=== PATIENT | female | born 1965 | race Caucasian/White ===

== ENCOUNTER 2019-01-18 07:46 | Day surgery (SDC) | payer MEDICARE, OTHER ==
[~2019-01-18] VITALS: Ht 167.6 cm; Wt 65.8 kg
[2019-01-18 08:26] VITALS: BP 100/65
[2019-01-18] MEDS ORDERED: LACTATED RINGERS 1,000 ML IV SCH (08:31)
[2019-01-18] MEDS ORDERED: [UNRECOGNIZED DRUG - REMARK] PO (08:36)
[2019-01-18] MEDS ORDERED: ZOFRAN PO (08:36)
[2019-01-18] MEDS ORDERED: SERT100T32 PO (08:36)
[2019-01-18] MEDS ORDERED: PANT40TA5 PO (08:36)
[2019-01-18] MEDS ORDERED: LEVO112T4 PO (08:36)
[2019-01-18] MEDS ORDERED: XERALTO PO (08:36)
[2019-01-18] MEDS ORDERED: METOPROLOL 1 MG/ML, 5ML IV PRN (09:00)
[2019-01-18] MEDS ORDERED: HALOPERIDOL 5 MG/ML IV PRN (09:00)
[2019-01-18] MEDS ORDERED: FENTANYL PF 100 MCG/2ML IV PRN (09:00)
[2019-01-18] MEDS ORDERED: DIPHENHYDRAMINE 50 MG/ML, 1ML IVPush PRN (09:00)
[2019-01-18] MEDS ORDERED: PROCHLORPERAZINE 5 MG/ML, 2ML IV PRN (09:00)
[2019-01-18] MEDS ORDERED: PROMETHAZINE 25 MG/ML, 1ML IV PRN (09:00)
[2019-01-18] MEDS ORDERED: OXYcodone 5 MG/5 ML ORAL.SOL UDC PO PRN (09:00)
[2019-01-18] MEDS ORDERED: hydrALAzine 20 MG/ML, 1ML IV PRN (09:00)
[2019-01-18] MEDS ORDERED: HYDROmorphone 2 MG/ML, 1ML IVPush PRN (09:00)
[2019-01-18] MEDS ORDERED: MEPERIDINE/PF 25MG/0.5ML IVPush PRN (09:00)
[2019-01-18] MEDS ORDERED: LABETALOL 5MG/ML, 20ML IV PRN (09:00)
[2019-01-18 09:19] LABS: BASOPHILS # (AUTO) 0.03 x10^3/uL (0-0.1); BASOPHILS % (AUTO) 0 % (0-1); EOSINOPHILS # (AUTO) 0.01 x10^3/uL (0-0.4); EOSINOPHILS % (AUTO) 0 % (1-7); LYMPHOCYTES # (AUTO) 1.58 x10^3/uL (1-3.4); LYMPHOCYTES % (AUTO) 22 % (22-44); MD NO; MEAN CORPUSCULAR HEMOGLOBIN 35.3 pg (27.0-34.8); MEAN CORPUSCULAR HGB CONC 32.4 g/dL (32.4-35.8); MEAN CORPUSCULAR VOLUME 109.1 fL (80-100); MEAN PLATELET VOLUME 8.3 fL (7.4-10.4); MONOCYTES # (AUTO) 0.52 x10^3/uL (0.2-0.8); MONOCYTES % (AUTO) 7 % (2-9); NEUTROPHILS # (AUTO) 4.94 x10^3/uL (1.8-6.8); NEUTROPHILS % (AUTO) 70 % (42-75); PLATELET COUNT 289 x10^3/uL (130-400); RED BLOOD COUNT 3.41 x10^6/uL (3.82-5.3)
[2019-01-18] MEDS ORDERED: LIDOCAINE JELLY 2%, 30GM ONE (09:42)
[2019-01-18] MEDS ORDERED: SILVER SULF. CRM 1% , 25GM ONE (09:42)
[2019-01-18] MEDS ORDERED: BUPIVACAINE/PF-EPI 0.5% 1:200K ONE (09:42)
[2019-01-18] MEDS ORDERED: MIDAZOLAM 1 MG/ML, 2ML ONE (10:24)
[2019-01-18] MEDS ORDERED: FENTANYL PF 100 MCG/2ML ONE ×2 (10:25→10:47)
[2019-01-18] MEDS ORDERED: OXYcodone 5 MG/5 ML ORAL.SOL UDC ONE (11:29)
[2019-01-18] MEDS ORDERED: SUCCINYLCHOLINE 20 MG/ML, 10ML ONE (15:03)
[2019-01-18] MEDS ORDERED: ROCURONIUM 10MG/ML,5ML ONE (15:03)
[2019-01-18] MEDS ORDERED: DEXAMETHASONE 4 MG/ML, 1ML ONE (15:03)
[2019-01-18] MEDS ORDERED: PROPOFOL 10 MG/ML, 20ML ONE (15:03)
[2019-01-18] MEDS ORDERED: CEFAZOLIN 1,000 MG ONE (15:03)
[2019-01-18] MEDS ORDERED: ONDANSETRON 2MG/ML, 2ML ONE (15:03)
== END 2019-01-18 13:15 | disposition home or self-care (01) ==
LOC: OUT 07:46
PROVIDERS: ATTEND Surgery
DX: K64.8 Other hemorrhoids (principal); K64.4 Residual hemorrhoidal skin tags; J44.9 Chronic obstructive pulmonary disease, unspecified; E03.9 Hypothyroidism, unspecified; K21.9 Gastro-esophageal reflux disease without esophagitis; F32.9 Major depressive disorder, single episode, unspecified; F17.210 Nicotine dependence, cigarettes, uncomplicated; Z86.711 Personal history of pulmonary embolism; Z86.718 Personal history of other venous thrombosis and embolism; Z98.890 Other specified postprocedural states
CPT/HCPCS: 36415; 46255; 85025; 88304; J0330; J0690; J1100; J2250; J2405; J2704; J3010; J7120

== ENCOUNTER → 2019-03-22 | Outpatient (CLI) | payer MEDICARE ==
[~2019-03-22] MED LIST: ACID1TAB7 PO; HYDR25TA6 PO; LEVO112T4 PO; PANT40TA5 PO; SERT100T32 PO; XERALTO PO; ZOFRAN PO; [UNRECOGNIZED DRUG - REMARK] PO
== END | disposition home or self-care (01) ==
LOC: CARD 15:16
PROVIDERS: ATTEND Registered Nurse
DX: J44.9 Chronic obstructive pulmonary disease, unspecified (principal)
CPT/HCPCS: 94060; 94726; 94729

== ENCOUNTER 2019-08-16 13:51 | Inpatient (IN) | payer MEDICARE ==
[~2019-08-16] VITALS: Ht 167.6 cm; Wt 69.4 kg
[2019-08-16] MEDS ORDERED: ASPIRIN 81 MG TABLET CHEW ONE (14:23)
[2019-08-16] MEDS ORDERED: ASPIRIN 81 MG TABLET CHEW PO ONE (14:30)
[2019-08-16] MEDS ORDERED: VENL37.52 PO (14:35)
[2019-08-16 14:38] LABS: MEAN CORPUSCULAR HEMOGLOBIN 39.9 pg (27.0-34.8); MEAN CORPUSCULAR HGB CONC 32.5 g/dL (32.4-35.8); MEAN CORPUSCULAR VOLUME 122.6 fL (80-100); MEAN PLATELET VOLUME 7.5 fL (7.4-10.4); PLATELET COUNT 396 x10^3/uL (130-400); RED BLOOD COUNT 2.77 x10^6/uL (3.82-5.3); RED CELL DISTRIBUTION WIDTH 20.3 % (9.6-15.2)
[2019-08-16] MEDS ORDERED: DILTIAZEM 5 MG/ML, 5ML IVPush ONE (15:00)
[2019-08-16] MEDS ORDERED: DILTIAZEM 5 MG/ML, 5ML ONE (15:02)
[2019-08-16 15:07] LABS: MD YES
[2019-08-16 15:15] LABS: BAND#(MANUAL) 0.08 x10^3/uL; BANDS%(MANUAL) 1 % (0-7); LYMPH#(MANUAL) 1.58 x10^3/uL (1-3.4); LYMPHS% (MANUAL) 20 % (22-44); MONOS#(MANUAL) 0.32 x10^3/uL (0.3-2.7); MONOS% (MANUAL) 4 % (2-9); SEG#(MANUAL) 5.93 x10^3/uL (1.8-6.8); SEGS% (MANUAL) 75 % (42-75)
[2019-08-16 15:16] LABS: <PLATELET ESTIMATE> ADEQUATE; <PLT MORPHOLOGY> NORMAL PLT MORPH; OVALOCYTES 1+; POLYCHROMASIA 1+; TARGET CELLS 1+
[2019-08-16 15:22] LABS: ALANINE AMINOTRANSFERASE 19 U/L (12-78); ALBUMIN 2.6 g/dL (3.4-5.0); ANION GAP 9 mmol/L (5-15); CALCIUM 7.8 mg/dL (8.5-10.1); CHLORIDE 105 mmol/L (98-107); CREATININE 1.07 mg/dL (0.55-1.02)
[2019-08-16 15:27] LABS: ALKALINE PHOSPHATASE 143 U/L (45-117); BILIRUBIN,TOTAL 0.5 mg/dL (0.2-1.0); TOTAL PROTEIN 6.2 g/dL (6.4-8.2); TROPONIN I < 0.015 ng/mL (0.000-0.045)
[2019-08-16] MEDS ORDERED: BISACODYL 10 MG SUPP PR PRN (18:30)
[2019-08-16] MEDS ORDERED: ENOXAPARIN 60 MG/0.6 ML SQ SCH (18:30)
[2019-08-16] MEDS ORDERED: POLYETHYLENE GLYCOL 17 GM PACKET PO PRN (18:30)
[2019-08-16] MEDS ORDERED: ACETAMINOPHEN 325 MG TABLET PO PRN (18:30)
[2019-08-16 18:48] VITALS: BP 115/76
[2019-08-16] MEDS ORDERED: DILTIAZEM 125 MG in SODIUM CHLORIDE 0.9% 100 ML IV SCH (19:00)
[2019-08-16 19:32] LABS: TROPONIN I < 0.015 ng/mL (0.000-0.045)
[2019-08-16] MEDS: SODIUM CHLORIDE 0.9% 1,000 ML IV SCH (19:49)
[2019-08-16 19:50] VITALS: BP 114/88
[2019-08-16] MEDS: ONDANSETRON 2MG/ML, 2ML IVPush PRN ×2 (21:11→21:13)
[2019-08-16] MEDS: RIVAROXABAN 20 MG TABLET PO SCH (21:11)
[2019-08-16 21:21] VITALS: BP 106/77
[2019-08-17] VITALS (7 sets, daily range): BP systolic 97–117; BP diastolic 60–85
[2019-08-17] MEDS: hydrOXyzine 10MG TABLET PO PRN ×2 (00:11→20:27)
[2019-08-17 00:45] LABS: TROPONIN I < 0.015 ng/mL (0.000-0.045)
[2019-08-17 05:09] LABS: MEAN CORPUSCULAR HEMOGLOBIN 40.2 pg (27.0-34.8); MEAN CORPUSCULAR HGB CONC 32.7 g/dL (32.4-35.8); MEAN CORPUSCULAR VOLUME 122.9 fL (80-100); MEAN PLATELET VOLUME 7.7 fL (7.4-10.4); PLATELET COUNT 353 x10^3/uL (130-400); RED BLOOD COUNT 2.23 x10^6/uL (3.82-5.3); RED CELL DISTRIBUTION WIDTH 20.3 % (9.6-15.2)
[2019-08-17 05:18] LABS: CHLORIDE 109 mmol/L (98-107)
[2019-08-17 05:25] LABS: ALANINE AMINOTRANSFERASE 13 U/L (12-78); ALBUMIN 1.9 g/dL (3.4-5.0); ALKALINE PHOSPHATASE 106 U/L (45-117); ANION GAP 4 mmol/L (5-15); BILIRUBIN,TOTAL 0.6 mg/dL (0.2-1.0); CALCIUM 7.2 mg/dL (8.5-10.1); CHOL/HDL RATIO 1.4; CHOLESTEROL, TOTAL 92 mg/dL (140-239); CREATININE 0.96 mg/dL (0.55-1.02); HDL CHOL % 70 % (28-40); HDL CHOLESTEROL (DIRECT) 64 mg/dL (40-60); LDL CHOLESTEROL,CALCULATED 17 mg/dL (54-169); LDL/HDL RATIO 0.3 (0.5-3.0); TOTAL PROTEIN 4.7 g/dL (6.4-8.2); TRIGLYCERIDES 53 mg/dL (50-200); TROPONIN I < 0.015 ng/mL (0.000-0.045); VLDL CHOLESTEROL 11 mg/dL (0-25)
[2019-08-17 05:43] LABS: BASOPHILS % (AUTO) 1 % (0-1); EOSINOPHILS # (AUTO) 0.09 x10^3/uL (0-0.4); EOSINOPHILS % (AUTO) 1 % (1-7); LYMPHOCYTES # (AUTO) 3.34 x10^3/uL (1-3.4); LYMPHOCYTES % (AUTO) 40 % (22-44); MD SCAN; MONOCYTES # (AUTO) 0.63 x10^3/uL (0.2-0.8); MONOCYTES % (AUTO) 8 % (2-9); NEUTROPHILS # (AUTO) 4.26 x10^3/uL (1.8-6.8); NEUTROPHILS % (AUTO) 51 % (42-75)
[2019-08-17] MEDS ORDERED: MAGNESIUM SULFATE PMX 2GM/50ML 50 ML IV ONE (06:30)
[2019-08-17] MEDS ORDERED: VENLAFAXINE XR 37.5MG CAP.ER.24H PO PRN (06:30)
[2019-08-17] MEDS: SODIUM CHLORIDE 0.9% 1,000 ML IV SCH ×2 (08:00→22:00)
[2019-08-17] MEDS: SENNA/DOCUSATE TABLET PO SCH (08:00)
[2019-08-17] MEDS ORDERED: LEVOTHYROXINE 112 MCG TABLET PO SCH (09:00)
[2019-08-17] MEDS ORDERED: RIVAROXABAN 20 MG TABLET PO SCH (09:00)
[2019-08-17] MEDS: ONDANSETRON 2MG/ML, 2ML IVPush PRN ×2 (14:02→20:27)
[2019-08-17] MEDS: DILTIAZEM 30 MG TABLET PO SCH ×3 (14:08→20:27)
[2019-08-17] MEDS: RIVAROXABAN 20 MG TABLET PO SCH (18:06)
[2019-08-17] MEDS ORDERED: OLODATEROL INH SCH (22:00)
[2019-08-17] MEDS ORDERED: TIOTROPIUM BROMIDE INH SCH (22:00)
[2019-08-18] MEDS: hydrOXyzine 10MG TABLET PO PRN ×3 (01:21→21:37)
[2019-08-18 01:54] VITALS: BP 105/73
[2019-08-18] MEDS: DILTIAZEM 30 MG TABLET PO SCH ×3 (02:00→11:53)
[2019-08-18 05:17] LABS: ALBUMIN 1.9 g/dL (3.4-5.0); CALCIUM 7.4 mg/dL (8.5-10.1); CHLORIDE 112 mmol/L (98-107)
[2019-08-18 05:46] LABS: ALANINE AMINOTRANSFERASE 13 U/L (12-78); ALKALINE PHOSPHATASE 110 U/L (45-117); ANION GAP 4 mmol/L (5-15); BILIRUBIN,TOTAL 0.7 mg/dL (0.2-1.0); CREATININE 0.92 mg/dL (0.55-1.02); TOTAL PROTEIN 4.8 g/dL (6.4-8.2)
[2019-08-18 05:51] LABS: MEAN CORPUSCULAR HEMOGLOBIN 40.4 pg (27.0-34.8); MEAN CORPUSCULAR HGB CONC 32.6 g/dL (32.4-35.8); MEAN CORPUSCULAR VOLUME 123.9 fL (80-100); MEAN PLATELET VOLUME 7.8 fL (7.4-10.4); PLATELET COUNT 375 x10^3/uL (130-400); RED BLOOD COUNT 2.31 x10^6/uL (3.82-5.3); RED CELL DISTRIBUTION WIDTH 20.4 % (9.6-15.2)
[2019-08-18 06:10] LABS: BASOPHILS # (AUTO) 0.03 x10^3/uL (0-0.1); BASOPHILS % (AUTO) 0 % (0-1); EOSINOPHILS # (AUTO) 0.08 x10^3/uL (0-0.4); EOSINOPHILS % (AUTO) 1 % (1-7); LYMPHOCYTES # (AUTO) 2.13 x10^3/uL (1-3.4); LYMPHOCYTES % (AUTO) 31 % (22-44); MD SCAN; MONOCYTES # (AUTO) 0.49 x10^3/uL (0.2-0.8); MONOCYTES % (AUTO) 7 % (2-9); NEUTROPHILS # (AUTO) 4.09 x10^3/uL (1.8-6.8); NEUTROPHILS % (AUTO) 60 % (42-75)
[2019-08-18] MEDS: LEVOTHYROXINE 112 MCG TABLET PO SCH (06:16)
[2019-08-18 08:31] VITALS: BP 101/74
[2019-08-18] MEDS: [UNRECOGNIZED DRUG - OTHER] INH SCH (09:00)
[2019-08-18] MEDS: SENNA/DOCUSATE TABLET PO SCH (09:14)
[2019-08-18] MEDS: MAGNESIUM OXIDE 400 MG TABLET PO SCH (09:14)
[2019-08-18 11:43] VITALS: BP 116/83
[2019-08-18 13:20] VITALS: BP 103/81
[2019-08-18] MEDS: SODIUM CHLORIDE 0.9% 1,000 ML IV SCH (15:32)
[2019-08-18] MEDS: ONDANSETRON 2MG/ML, 2ML IVPush PRN (16:20)
[2019-08-18] MEDS: RIVAROXABAN 20 MG TABLET PO SCH (17:56)
[2019-08-18] MEDS ORDERED: OMNIPAQUE 350 MG/ML, 100ML BOTTLE ONE (18:01)
[2019-08-18] MEDS ORDERED: DILTIAZEM 90 MG CAP.ER.12H PO SCH (21:00)
[2019-08-18 21:31] VITALS: BP 127/84
[2019-08-19 02:49] VITALS: BP 102/62
[2019-08-19 05:56] LABS: MEAN CORPUSCULAR HEMOGLOBIN 41.2 pg (27.0-34.8); MEAN CORPUSCULAR VOLUME 124.6 fL (80-100); MEAN PLATELET VOLUME 7.8 fL (7.4-10.4); PLATELET COUNT 398 x10^3/uL (130-400); RED BLOOD COUNT 2.38 x10^6/uL (3.82-5.3); RED CELL DISTRIBUTION WIDTH 20.4 % (9.6-15.2)
[2019-08-19 06:03] LABS: ALANINE AMINOTRANSFERASE 14 U/L (12-78); ALBUMIN 1.9 g/dL (3.4-5.0); ANION GAP 6 mmol/L (5-15); CALCIUM 7.4 mg/dL (8.5-10.1); CHLORIDE 114 mmol/L (98-107); CREATININE 0.95 mg/dL (0.55-1.02)
[2019-08-19 06:05] LABS: ALKALINE PHOSPHATASE 112 U/L (45-117); BILIRUBIN,TOTAL 0.6 mg/dL (0.2-1.0); TOTAL PROTEIN 4.8 g/dL (6.4-8.2)
[2019-08-19] MEDS: LEVOTHYROXINE 112 MCG TABLET PO SCH (06:10)
[2019-08-19 07:15] LABS: BASOPHILS # (AUTO) 0.11 x10^3/uL (0-0.1); BASOPHILS % (AUTO) 2 % (0-1); EOSINOPHILS # (AUTO) 0.06 x10^3/uL (0-0.4); EOSINOPHILS % (AUTO) 1 % (1-7); LYMPHOCYTES # (AUTO) 2.01 x10^3/uL (1-3.4); LYMPHOCYTES % (AUTO) 31 % (22-44); MD SCAN; MONOCYTES # (AUTO) 0.58 x10^3/uL (0.2-0.8); MONOCYTES % (AUTO) 9 % (2-9); NEUTROPHILS # (AUTO) 3.73 x10^3/uL (1.8-6.8); NEUTROPHILS % (AUTO) 58 % (42-75)
[2019-08-19 08:26] VITALS: BP 118/78
[2019-08-19] MEDS: [UNRECOGNIZED DRUG - OTHER] INH SCH (08:57)
[2019-08-19] MEDS: MAGNESIUM OXIDE 400 MG TABLET PO SCH (08:58)
[2019-08-19] MEDS: DILTIAZEM 120 MG CAP.ER.12H PO SCH ×2 (08:58→20:49)
[2019-08-19] MEDS: SENNA/DOCUSATE TABLET PO SCH (08:58)
[2019-08-19] MEDS ORDERED: FUROSEMIDE 20 MG/2 ML IV ONE (09:00)
[2019-08-19 12:55] VITALS: BP 109/59
[2019-08-19] MEDS: RIVAROXABAN 20 MG TABLET PO SCH (16:29)
[2019-08-19] MEDS: hydrOXyzine 10MG TABLET PO PRN (18:14)
[2019-08-19 19:50] VITALS: BP 101/75
[2019-08-20] MEDS: hydrOXyzine 10MG TABLET PO PRN (00:13)
[2019-08-20 01:36] VITALS: BP 101/77
[2019-08-20 05:14] LABS: MEAN CORPUSCULAR HEMOGLOBIN 39.9 pg (27.0-34.8); MEAN CORPUSCULAR HGB CONC 32.2 g/dL (32.4-35.8); MEAN CORPUSCULAR VOLUME 123.7 fL (80-100); MEAN PLATELET VOLUME 7.6 fL (7.4-10.4); PLATELET COUNT 383 x10^3/uL (130-400); RED BLOOD COUNT 2.36 x10^6/uL (3.82-5.3); RED CELL DISTRIBUTION WIDTH 20.2 % (9.6-15.2)
[2019-08-20 05:25] LABS: ANION GAP 4 mmol/L (5-15); CALCIUM 7.4 mg/dL (8.5-10.1); CHLORIDE 112 mmol/L (98-107); CREATININE 0.95 mg/dL (0.55-1.02)
[2019-08-20 06:08] LABS: BASOPHILS % (AUTO) 1 % (0-1); EOSINOPHILS # (AUTO) 0.09 x10^3/uL (0-0.4); EOSINOPHILS % (AUTO) 1 % (1-7); LYMPHOCYTES # (AUTO) 2.55 x10^3/uL (1-3.4); LYMPHOCYTES % (AUTO) 36 % (22-44); MD SCAN; MONOCYTES # (AUTO) 0.69 x10^3/uL (0.2-0.8); MONOCYTES % (AUTO) 10 % (2-9); NEUTROPHILS # (AUTO) 3.62 x10^3/uL (1.8-6.8); NEUTROPHILS % (AUTO) 51 % (42-75)
[2019-08-20] MEDS: LEVOTHYROXINE 112 MCG TABLET PO SCH (06:33)
[2019-08-20 07:56] VITALS: BP 103/72
[2019-08-20] MEDS: SENNA/DOCUSATE TABLET PO SCH ×2 (08:19→12:41)
[2019-08-20] MEDS: DILTIAZEM 120 MG CAP.ER.12H PO SCH (08:19)
[2019-08-20] MEDS: [UNRECOGNIZED DRUG - OTHER] INH SCH (08:19)
[2019-08-20] MEDS: MAGNESIUM OXIDE 400 MG TABLET PO SCH (08:21)
[2019-08-20] MEDS: ONDANSETRON 2MG/ML, 2ML IVPush PRN (12:40)
[2019-08-20 13:52] VITALS: BP 106/74
[2019-08-20] MEDS ORDERED: DILT120C11 PO (16:49)
[2019-08-20] MEDS ORDERED: MAGN400T50 PO (16:49)
[2019-08-20] MEDS: RIVAROXABAN 20 MG TABLET PO SCH (17:47)
== END 2019-08-20 18:04 | disposition home health service (06) | DRG 308 ==
LOC: ED 14:49 → EDIP 16:41 → 5SO 18:38
PROVIDERS: ADMIT Internal Medicine; ATTEND Internal Medicine
DX: I48.91 Unspecified atrial fibrillation (principal); I50.33 Acute on chronic diastolic (congestive) heart failure; E46 Unspecified protein-calorie malnutrition; J96.10 Chronic respiratory failure, unspecified whether with hypoxia or hypercapnia; D68.69 Other thrombophilia; I11.0 Hypertensive heart disease with heart failure; D53.9 Nutritional anemia, unspecified; E86.0 Dehydration; G47.30 Sleep apnea, unspecified; I45.10 Unspecified right bundle-branch block; J44.9 Chronic obstructive pulmonary disease, unspecified; E03.9 Hypothyroidism, unspecified; Z79.01 Long term (current) use of anticoagulants; Z79.899 Other long term (current) drug therapy; Z87.891 Personal history of nicotine dependence; Z98.84 Bariatric surgery status; Z99.81 Dependence on supplemental oxygen; Z68.24 Body mass index [BMI] 24.0-24.9, adult; Z83.79 Family history of other diseases of the digestive system
CPT/HCPCS: 36415; 71045; 71260; 74177; 80048; 80053; 80061; 82607; 83735; 83880; 84100; 84443; 84484; 85025; 93005; 93970; G0378; J2405; Q9967; J1940; J3475; J7030

== ENCOUNTER 2019-08-28 07:59 | Day surgery (SDC) | payer MEDICARE ==
[~2019-08-28] VITALS: Ht 168.9 cm; Wt 99.1 kg
[~2019-08-28 07:59] MED LIST changes: +DILT120C11 PO; +MAGN400T50 PO; +VENL37.52 PO
[2019-08-28] MEDS ORDERED: VENL37.52 PO (08:36)
[2019-08-28] MEDS ORDERED: LEVO112T4 PO (08:36)
[2019-08-28] MEDS ORDERED: HYDR-3237 PO (08:36)
[2019-08-28] MEDS ORDERED: RIVA20TA PO (08:36)
[2019-08-28] MEDS ORDERED: PANT40TA5 PO (08:36)
[2019-08-28] MEDS ORDERED: VERA120T8 PO (08:36)
[2019-08-28] MEDS ORDERED: HYDR10TA4 PO (08:36)
[2019-08-28] MEDS ORDERED: ONDA4TAB7 PO (08:36)
[2019-08-28 08:41] VITALS: BP 102/78
[2019-08-28 09:02] LABS: ANION GAP 6 mmol/L (5-15); CALCIUM 7.7 mg/dL (8.5-10.1); CHLORIDE 111 mmol/L (98-107); CREATININE 1.17 mg/dL (0.55-1.02)
[2019-08-28] MEDS ORDERED: PROPOFOL 10 MG/ML, 20ML ONE (10:18)
== END 2019-08-28 12:11 | disposition home or self-care (01) ==
LOC: CACL 07:59
PROVIDERS: ATTEND Internal Medicine Cardiovascular Disease
DX: I48.91 Unspecified atrial fibrillation (principal); I11.0 Hypertensive heart disease with heart failure; I50.30 Unspecified diastolic (congestive) heart failure; F41.9 Anxiety disorder, unspecified; J44.9 Chronic obstructive pulmonary disease, unspecified; E66.9 Obesity, unspecified; Z68.25 Body mass index [BMI] 25.0-25.9, adult; Z79.01 Long term (current) use of anticoagulants; Z79.890 Hormone replacement therapy; Z79.899 Other long term (current) drug therapy; Z87.891 Personal history of nicotine dependence; Z86.718 Personal history of other venous thrombosis and embolism; Z86.711 Personal history of pulmonary embolism
CPT/HCPCS: 36415; 80048; 92960; J2704

== ENCOUNTER 2019-09-02 10:49 | Emergency (ER) | payer MEDICARE ==
[~2019-09-02] VITALS: Ht 167.6 cm; Wt 63.6 kg
[~2019-09-02 10:49] MED LIST changes: +HYDR-3237 PO; +HYDR10TA4 PO; +ONDA4TAB7 PO; +RIVA20TA PO; +VERA120T8 PO
--- NOTE | 2019-09-02 11:27 | NUR ---
PT BIB [facility] S/P FEELING DIZZY AND SYNCOPAL X "SECONDS" FELL BACK AND HIT HEAD, WITNESSED BY . PT DENIES HEAD AND NECK PAIN. A&O X4, GCS 15, LUNGS CLEAR BILAT. HR 60S, RBBB NOTED BY EMS. HX AFIB, WAS CARDIOVERTED AT [facility] 2 WEEKS AGO. PER EMS PT SELF CONVERTED TO SR WITH RBBB EN ROUTE. ABD SNT, C/O CONSTIPATION X2 DAYS. ZOFRAN PER EMS. VSS. AT BEDSIDE. EKG COMPLETE. AWAITING MD ALATORRE. CALL LIGHT W/IN REACH FALL PRECS IN PLACE.
--- NOTE | 2019-09-02 11:41 | NUR ---
MD AT BEDSIDE. PT STS SHE DID NOT EAT BREAKFAST TODAY AND FELT LIKE SHE WAS GOING TO PASS OUT FROM THAT.
--- NOTE | 2019-09-02 12:21 | NUR ---
PT RESTING COMFORTABLY AWAITING LAB AND CXR RESULT AT BEDSIDE CALL SEWELL IN REACH.
[2019-09-02 12:35] LABS: MEAN CORPUSCULAR HEMOGLOBIN 37.3 pg (27.0-34.8); MEAN CORPUSCULAR HGB CONC 31.9 g/dL (32.4-35.8); MEAN CORPUSCULAR VOLUME 116.9 fL (80-100); MEAN PLATELET VOLUME 7.1 fL (7.4-10.4); PLATELET COUNT 545 x10^3/uL (130-400); RED BLOOD COUNT 3.05 x10^6/uL (3.82-5.3); RED CELL DISTRIBUTION WIDTH 21.8 % (9.6-15.2)
[2019-09-02 12:48] LABS: ALANINE AMINOTRANSFERASE 14 U/L (12-78); ALBUMIN 2.1 g/dL (3.4-5.0); ANION GAP 6 mmol/L (5-15); CALCIUM 7.6 mg/dL (8.5-10.1); CHLORIDE 111 mmol/L (98-107); CREATININE 0.96 mg/dL (0.55-1.02)
[2019-09-02 12:50] LABS: ALKALINE PHOSPHATASE 127 U/L (45-117); BILIRUBIN,TOTAL 0.6 mg/dL (0.2-1.0); TOTAL PROTEIN 5.9 g/dL (6.4-8.2)
[2019-09-02 13:03] LABS: BASOPHILS # (AUTO) 0.01 x10^3/uL (0-0.1); BASOPHILS % (AUTO) 0 % (0-1); EOSINOPHILS # (AUTO) 0.08 x10^3/uL (0-0.4); EOSINOPHILS % (AUTO) 1 % (1-7); LYMPHOCYTES # (AUTO) 1.99 x10^3/uL (1-3.4); LYMPHOCYTES % (AUTO) 17 % (22-44); MD MORPH REVIEW ONLY; MONOCYTES # (AUTO) 0.49 x10^3/uL (0.2-0.8); MONOCYTES % (AUTO) 4 % (2-9); NEUTROPHILS # (AUTO) 9.52 x10^3/uL (1.8-6.8); NEUTROPHILS % (AUTO) 79 % (42-75)
[2019-09-02 13:05] LABS: TARGET CELLS 1+
[2019-09-02 13:07] LABS: <PLATELET ESTIMATE> INCREASED; <PLT MORPHOLOGY> NORMAL PLT MORPH; HYPOCHROMIA 1+
[2019-09-02 13:09] LABS: ANISOCYTOSIS 2+
--- NOTE | 2019-09-02 13:09 | NUR ---
BECKI QUINN AT BEDSIDE FOR RECHECK/EXPLANATION OF RESULTS. PT AND VERBALIZE UNDERSTANDING. PT NSR WITH RBBB 60'S ON RN INTERNSHIP. SKIN SLIGHTLY PALE, WARM AND DRY. RESP EVEN AND UNLABORED. CALL LIGHT WITHIN REACH.
[2019-09-02 13:43] VITALS: BP 127/88
== END 2019-09-02 13:53 | disposition home or self-care (01) ==
LOC: ED 12:01
DX: R55 Syncope and collapse (principal); J44.9 Chronic obstructive pulmonary disease, unspecified; I48.91 Unspecified atrial fibrillation; I50.20 Unspecified systolic (congestive) heart failure; Z98.84 Bariatric surgery status; Z86.711 Personal history of pulmonary embolism; Z86.718 Personal history of other venous thrombosis and embolism
CPT/HCPCS: 36415; 71045; 80053; 85025; 93005; 99284

== ENCOUNTER 2019-09-11 08:58 | Inpatient (IN) | payer MEDICARE ==
[~2019-09-11] VITALS: Ht 167.6 cm; Wt 76.7 kg
[2019-09-11] MEDS ORDERED: PLEASE ENTER HEIGHT AND WEIGHT MC SCH (09:30)
[2019-09-11 09:33] VITALS: BP 92/60
[2019-09-11 10:22] LABS: ANION GAP 5 mmol/L (5-15); CALCIUM 7.5 mg/dL (8.5-10.1); CHLORIDE 115 mmol/L (98-107); CHOLESTEROL, TOTAL 83 mg/dL (140-239)
[2019-09-11 10:26] LABS: CHOL/HDL RATIO 2.1; FREE T4 (FREE THYROXINE) 0.85 ng/dL (0.76-1.46); HDL CHOL % 47 % (28-40); HDL CHOLESTEROL (DIRECT) 39 mg/dL (40-60); LDL CHOLESTEROL,CALCULATED 28 mg/dL (54-169); LDL/HDL RATIO 0.7 (0.5-3.0); TRIGLYCERIDES 78 mg/dL (50-200); TROPONIN I < 0.015 ng/mL (0.000-0.045); VLDL CHOLESTEROL 16 mg/dL (0-25)
[2019-09-11] MEDS: SOTALOL 120MG TABLET PO SCH ×2 (10:58→23:11)
[2019-09-11] MEDS ORDERED: hydrOXyzine 10MG TABLET ONE (11:04)
[2019-09-11] MEDS ORDERED: HYDR-826 PO (11:23)
[2019-09-11 13:40] VITALS: BP 92/63
[2019-09-11] MEDS: HYDROcodone/APAP 5/325 TABLET PO PRN (17:13)
[2019-09-11 20:00] VITALS: BP 92/65
[2019-09-11] MEDS ORDERED: RIVAROXABAN 20 MG TABLET PO ONE (21:00)
[2019-09-11] MEDS: ONDANSETRON 4 MG TABLET PO PRN (23:45)
[2019-09-12] VITALS (8 sets, daily range): BP systolic 72–106; BP diastolic 38–70
[2019-09-12] MEDS: PANTOPROZOLE 40MG TABLET PO SCH (06:22)
[2019-09-12] MEDS: LEVOTHYROXINE 112 MCG TABLET PO SCH (06:22)
[2019-09-12] MEDS: HYDROcodone/APAP 5/325 TABLET PO PRN (08:11)
[2019-09-12] MEDS: LACTOBACILLUS CHEW TABLET PO SCH (08:11)
[2019-09-12] MEDS: VENLAFAXINE XR 37.5MG CAP.ER.24H PO SCH (08:11)
[2019-09-12] MEDS ORDERED: RIVAROXABAN 20 MG TABLET PO SCH (09:00)
[2019-09-12] MEDS: SOTALOL 120MG TABLET PO SCH ×2 (10:06→22:27)
[2019-09-12] MEDS: FUROSEMIDE 20 MG TABLET PO SCH (13:00)
[2019-09-12 14:16] LABS: MEAN CORPUSCULAR HEMOGLOBIN 35.3 pg (27.0-34.8); MEAN CORPUSCULAR VOLUME 110.4 fL (80-100); MEAN PLATELET VOLUME 7.5 fL (7.4-10.4); PLATELET COUNT 426 x10^3/uL (130-400); RED BLOOD COUNT 3.05 x10^6/uL (3.82-5.3)
[2019-09-12] MEDS: ONDANSETRON 4 MG TABLET PO PRN (14:22)
[2019-09-12] MEDS: ACETAMINOPHEN 325 MG TABLET PO PRN (14:22)
[2019-09-12 14:56] LABS: ALBUMIN 1.7 g/dL (3.4-5.0); ANION GAP 5 mmol/L (5-15); CALCIUM 7.7 mg/dL (8.5-10.1); CHLORIDE 115 mmol/L (98-107)
[2019-09-12 15:01] LABS: ALANINE AMINOTRANSFERASE 17 U/L (12-78); ALKALINE PHOSPHATASE 127 U/L (45-117); BILIRUBIN,TOTAL 0.5 mg/dL (0.2-1.0); CREATININE 0.99 mg/dL (0.55-1.02); TOTAL PROTEIN 5.5 g/dL (6.4-8.2)
[2019-09-12 15:15] LABS: BASOPHILS # (AUTO) 0.04 x10^3/uL (0-0.1); BASOPHILS % (AUTO) 1 % (0-1); EOSINOPHILS # (AUTO) 0.07 x10^3/uL (0-0.4); EOSINOPHILS % (AUTO) 1 % (1-7); LYMPHOCYTES # (AUTO) 2.55 x10^3/uL (1-3.4); LYMPHOCYTES % (AUTO) 33 % (22-44); MD MORPH REVIEW ONLY; MONOCYTES # (AUTO) 0.64 x10^3/uL (0.2-0.8); MONOCYTES % (AUTO) 8 % (2-9); NEUTROPHILS # (AUTO) 4.36 x10^3/uL (1.8-6.8); NEUTROPHILS % (AUTO) 57 % (42-75)
[2019-09-12 15:17] LABS: ANISOCYTOSIS 2+
[2019-09-12 15:23] LABS: <PLATELET ESTIMATE> INCREASED; <PLT MORPHOLOGY> NORMAL PLT MORPH; HYPOCHROMIA 1+
[2019-09-12] MEDS: RIVAROXABAN 20 MG TABLET PO SCH (17:58)
[2019-09-12] MEDS: ALBUMIN HUMAN 25% 100 ML IV SCH (17:58)
[2019-09-12] MEDS ORDERED: ONDANSETRON 4 MG TABLET PO ONE (18:30)
[2019-09-12] MEDS ORDERED: ACETAMINOPHEN 325 MG TABLET PO PRN (18:30)
[2019-09-13] MEDS: ALBUMIN HUMAN 25% 100 ML IV SCH ×3 (02:26→17:38)
[2019-09-13] MEDS: ONDANSETRON 4 MG TABLET PO PRN ×2 (02:26→08:54)
[2019-09-13] MEDS: PANTOPROZOLE 40MG TABLET PO SCH (05:03)
[2019-09-13] MEDS: LEVOTHYROXINE 112 MCG TABLET PO SCH (05:03)
[2019-09-13 05:46] LABS: CHLORIDE 115 mmol/L (98-107)
[2019-09-13 06:06] LABS: ALANINE AMINOTRANSFERASE 20 U/L (12-78); ALBUMIN 2.7 g/dL (3.4-5.0); ALKALINE PHOSPHATASE 113 U/L (45-117); ANION GAP 6 mmol/L (5-15); BILIRUBIN,TOTAL 0.6 mg/dL (0.2-1.0); CREATININE 1.06 mg/dL (0.55-1.02); PREALBUMIN 6.7 mg/dL (20.0-40.0); TOTAL PROTEIN 6.4 g/dL (6.4-8.2)
[2019-09-13 06:26] VITALS: BP 95/70
[2019-09-13] MEDS: FUROSEMIDE 20 MG TABLET PO SCH (08:41)
[2019-09-13] MEDS: LACTOBACILLUS CHEW TABLET PO SCH (08:41)
[2019-09-13] MEDS: VENLAFAXINE XR 37.5MG CAP.ER.24H PO SCH (08:42)
[2019-09-13] MEDS ORDERED: PROPOFOL 10 MG/ML, 20ML ONE (10:33)
[2019-09-13] MEDS: SOTALOL 80MG TABLET PO SCH ×2 (11:55→22:32)
[2019-09-13 12:07] VITALS: BP 107/77
[2019-09-13] MEDS ORDERED: ATROPINE SYRINGE 0.1 MG/ML, 10ML ONE (13:48)
[2019-09-13] MEDS ORDERED: EPINEPHRINE SYRINGE 0.1 MG/ML, 10ML ONE ×2 (13:48→23:55)
[2019-09-13] MEDS ORDERED: SODIUM BICARB 8.4%, 50ML SYRINGE ONE (13:48)
[2019-09-13] MEDS ORDERED: ONDANSETRON ODT 4 MG PO PRN (15:30)
[2019-09-13] MEDS ORDERED: MELATONIN 5 MG TABLET PO PRN (16:30)
[2019-09-13] MEDS: RIVAROXABAN 20 MG TABLET PO SCH (17:38)
[2019-09-13 19:09] VITALS: BP 96/57
[2019-09-13] MEDS ORDERED: MORPHINE SULFATE 4 MG/ML, 1ML ONE (23:43)
[2019-09-13] MEDS ORDERED: SODIUM CHLORIDE 0.9%, 250ML ONE (23:55)
[2019-09-13] MEDS ORDERED: NOREPINEPHRINE 1 MG/ML, 4ML ONE (23:55)
[2019-09-13] MEDS ORDERED: CODE BLUE RESPONSE XX ONE (23:55)
[2019-09-13] MEDS ORDERED: PHENYLEPHRINE 10 MG/ML ONE (23:55)
[2019-09-13] MEDS ORDERED: DEXTROSE 5%, 250ML ONE (23:55)
[2019-09-13] MEDS ORDERED: VASOPRESSIN 20 UNIT/ML, 1ML ONE (23:55)
[2019-09-13] MEDS ORDERED: AMIODARONE 50 MG/ML, 3ML ONE ×2 (23:55)
[2019-09-13] MEDS ORDERED: SUCCINYLCHOLINE 20 MG/ML, 10ML ONE (23:55)
[2019-09-13] MEDS ORDERED: ETOMIDATE 20 MG/10 ML ONE (23:55)
[2019-09-14] MEDS ORDERED: LORazepam 2 MG/ML, 1ML ONE (00:05)
[2019-09-14] MEDS ORDERED: SODIUM BICARB 8.4%, 50ML SYRINGE ONE (03:00)
[2019-09-14] MEDS ORDERED: EPINEPHRINE SYRINGE 0.1 MG/ML, 10ML ONE (03:00)
[2019-09-14] MEDS ORDERED: NALOXONE 1 MG/ML, 2ML ONE (03:00)
== END 2019-09-14 04:10 | DRG 308 ==
LOC: 5SO 08:58 → CCU 09-14 02:30
PROVIDERS: ADMIT Internal Medicine Cardiovascular Disease; ATTEND Internal Medicine Cardiovascular Disease
PROC: 5A1935Z Respiratory Ventilation, Less than 24 Consecutive Hours (ICD-10-PCS; 2019-09-13)
PROC: 0BH17EZ Insertion of Endotracheal Airway into Trachea, Via Natural or Artificial Opening (ICD-10-PCS; 2019-09-13)
PROC: 5A2204Z Restoration of Cardiac Rhythm, Single (ICD-10-PCS; principal; 2019-09-13 11:30)
PROC: 5A2204Z Restoration of Cardiac Rhythm, Single (ICD-10-PCS; 2019-09-14)
PROC: 5A12012 Performance of Cardiac Output, Single, Manual (ICD-10-PCS; 2019-09-14)
DX: I48.0 Paroxysmal atrial fibrillation (principal); R57.0 Cardiogenic shock; I26.99 Other pulmonary embolism without acute cor pulmonale; E43 Unspecified severe protein-calorie malnutrition; D68.69 Other thrombophilia; J96.10 Chronic respiratory failure, unspecified whether with hypoxia or hypercapnia; E03.9 Hypothyroidism, unspecified; I10 Essential (primary) hypertension; I27.20 Pulmonary hypertension, unspecified; J44.9 Chronic obstructive pulmonary disease, unspecified; I95.9 Hypotension, unspecified; R60.0 Localized edema; E66.9 Obesity, unspecified; M79.89 Other specified soft tissue disorders; Z86.718 Personal history of other venous thrombosis and embolism; Z86.711 Personal history of pulmonary embolism; Z68.27 Body mass index [BMI] 27.0-27.9, adult; Z87.891 Personal history of nicotine dependence; Z90.81 Acquired absence of spleen; Z98.84 Bariatric surgery status
CPT/HCPCS: 36415; 71046; 74021; 80048; 80053; 80061; 82533; 82962; 83735; 83880; 84134; 84145; 84439; 84443; 84484; 85014; 85018; 85025; 92960; 93005; 93306; 94002; 94003; G0378; J0461; J2704; J7060; P9047; Q0162; J0282; J0330; J2310; J2370; J7050; Q0177